=== PATIENT | female | born 2000 | race Asian ===

== ENCOUNTER 2019-06-25 22:04 | Emergency (ER) | payer SELFPAY ==
[~2019-06-25] VITALS: Ht 162.6 cm; Wt 65.0 kg
[2019-06-25 22:31] VITALS: BP 125/58; TEMP 98
[2019-06-26 01:45] VITALS: PULSE 91
== END 2019-06-26 01:45 | disposition home or self-care (01) ==
LOC: COL.ER 22:04
DX: S71.111A Laceration without foreign body, right thigh, initial encounter (principal); Z23 Encounter for immunization; W26.0XXA Contact with knife, initial encounter; Y92.009 Unspecified place in unspecified non-institutional (private) residence as the place of occurrence of the external cause